=== PATIENT | male | born 1985 | race Caucasian/White ===

== ENCOUNTER 2020-01-29 09:09 | Outpatient (CLI) | payer OTHER, BC, SELFPAY ==
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
== END 2020-01-29 09:10 | disposition home or self-care (01) ==
PROVIDERS: PCP Physician Assistant; Visit Provider Physician Assistant
DX: R19.03 Right lower quadrant abdominal swelling, mass and lump (principal); R10.31 Right lower quadrant pain
CPT/HCPCS: 76705; 93976

== ENCOUNTER 2021-07-22 09:02 | Outpatient (CLI) | payer BC, SELFPAY ==
--- NOTE | ~2021-07-22 | US_ITS ---
EXAMINATION: US abdomen limited EXAM DATE: 07/22/2021 09:58 INDICATION: Elevated bilirubin. TECHNIQUE: Multiple grayscale and Doppler images of the abdomen right upper quadrant were obtained (blayne y a technologist who performed the scan) and subsequently reviewed. There is no prior study for mirlande batres. FINDINGS: The pancreatic head and body are normal in appearance. The pancreatic tail is not visualized. The l iver has normal echogenicity and contour. There are no focal liver lesions identified. There is no evidence of intrahepatic biliary duct dilation. Portal venous flow was seen in the hepatopedal, nor mal direction and has normal Doppler waveform. No right-sided hydronephrosis. Common bile duct measures 5 mm, which is normal. The gallbladder wall is normal in thickness, with ex pected amount of distention. No sonographic evidence of pericholecystic fluid. There is no cholelit hiases. Technologist performing exam reports patient did not demonstrate sonographic Alston's sign. Please note that this sign is less reliable in patients who have received pain medication. IMPRESSION: Unremarkable abdominal ultrasound exam. Reviewed, dictated and finalized at location B.
== END 2021-07-22 09:03 | disposition home or self-care (01) ==
PROVIDERS: PCP Physician Assistant; Visit Provider Nurse Practitioner
DX: R17 Unspecified jaundice (principal)
CPT/HCPCS: 76705

== ENCOUNTER 2023-02-01 08:57 | Emergency (ER) | payer OTHER, SELFPAY ==
[2023-02-01] VITALS (15 sets, daily range): BP systolic 117–145; BP diastolic 64–89; PULSE 67–71; RESP 16; TEMP 36.7–37.1; O2SAT 94–100
--- NOTE | ~2023-02-01 | CT_ITS ---
EXAMINATION: CT abdomen pelvis w con INDICATION: Right lower quadrant pain TECHNIQUE: Computed tomographic images of the abdomen and pelvis were obtained after the administrati on of 100 cc of Omnipaque 350 intravenous contrast. The dose-length product (DLP) was 1081.98 mGy-cm. Automated exposure control and iterative reconstruction technique were employed. COMPARISON: None available FINDINGS: The lung bases are clear. The heart size is normal. The liver, spleen, pancreas, gallbladder, and adrenal glands are normal. An 11 mm hypoattenuating les ion of the left kidney lower pole likely represents a cyst. There is a 2 mm nonobstructing stone of t he right kidney. No pathologically enlarged abdominal or pelvic lymph nodes are identified. No free i ntraperitoneal gas or evidence of bowel obstruction. The appendix is normal. There is questionable mi ld wall thickening of the hepatic flexure of the colon and proximal transverse colon. There is a righ t inguinal hernia containing fat. There is severe lumbar spondylosis at L5-S1. There is a tiny umbili radha hernia containing fat. IMPRESSION: 1. Questionable wall thickening at the hepatic flexure of the colon and proximal transverse colon whi ch could be due to incomplete distention or possibly mild colitis. Reviewed, dictated and finalized at location L. IMPRESSION: 1. Questionable wall thickening at the hepatic flexure of the colon and proxima l transverse colon which could be due to incomplete distention or possibly mild colitis.
[2023-02-01 09:30] LABS: Basophils Percent Auto 0.2 % (0.2-1.2); Eosinophils Percent Auto 0.2 % (0-4.4); Hematocrit 45.9 % (42.0-52.0); Hemoglobin 16.1 g/dL (14.0-18.0); Immature Granulocyte Absolute 0.07 K/mm3 (0.00-0.031); Immature Granulocyte Percent A 0.4 % (0-0.5); Lymphocytes Absolute Auto 1.27 K/mm3 (0.9-3.2); Lymphocytes Percent Auto 7.7 % (18.3-44.2); Mean Corpuscular HGB Conc 35.1 g/dl (32-36); Mean Corpuscular Hemoglobin 29.5 pg (26-34); Mean Corpuscular Volume 84.1 fl (80-100); Mean Platelet Volume 8.9 fl (7.4-10.4); Monocytes Absolute Auto 1.1 K/mm3 (0.1-0.6); Monocytes Percent Auto 6.9 % (2.6-8.5); Neutrophils Absolute Auto 13.9 K/mm3 (1.3-6.7); Neutrophils Percent Auto 84.6 % (45.5-73.1); Platelet Count Result 233 k/mm3 (150-375); Red Blood Count 5.46 M/mm3 (4.6-6.20); Red Cell Distribution Width 12.4 % (11.5-14.5); White Blood Count 16.5 K/mm3 (4.5-10.0)
[2023-02-01 09:31] LABS: Appearance Urine Clear (Clear); Bilirubin Urine Negative (Negative); Blood Urine Negative (Negative); Color Urine Yellow (Yellow); Glucose Urine UA Negative (Negative); Ketones Urine Trace mg/dL (Negative); Leukocyte Esterase Ur Negative LEU/UL (Negative); Nitrate Urine Negative (Negative); Protein Urine Negative (Negative); Specific Grav Ur 1.017 (1.001-1.035); Urobilinogen Urine 0.2 mg/dL (<2.0); pH Urine 6.5 (5.0-9.0)
[2023-02-01 09:36] LABS: Add Urine Microscopic? NO
[2023-02-01 09:42] LABS: Alanine Aminotransferase 28 U/L (6-50); Albumin Level 4.7 g/dL (3.5-5.1); Alkaline Phosphatase 83 U/L (38-126); Anion Gap 10 mmol/L (8-16); Aspartate Amino Transferase 31 U/L (17-59); Bilirubin,Total 2.2 mg/dL (0.2-1.3); Blood Urea Nitrogen 17 mg/dL (9-20); Calcium 9.2 mg/dL (8.4-10.2); Carbon Dioxide 26 mmol/L (22-30); Chloride 102 mmol/L (98-107); Estimated CRCL calculation 107 ml/min; Estimated Glomerular Filt Rate > 60; Glucose 100 mg/dL (65-110); Lipase 159 U/L (23-300); Potassium 3.9 mmol/L (3.4-5.0); Sodium 138 mmol/L (137-145)
--- NOTE | 2023-02-01 09:51 | ED.GENADULT ---
HPI - General Adult General Chief complaint: Abdominal Pain Stated complaint: ABD PAIN X1WEEK Time Seen by Provider: 02/01/23 09:03 Source: patient Mode of arrival: ambulatory Limitations: no limitations History of Present Illness HPI narrative: This is a 38-year-old male who presents to the ED with chief complaint of lower abdominal pain onset x1 week. Reports pain started out in the right lower quadrant and has become progressively worse each day. Reports that the pain is radiating into the right groin area at this point. He states he has become nauseous but has not had any episodes of vomiting. Reports pain is 7-8/10. Worse with palpation. Denies any problems with bowel movements or urinary stream. Denies fevers, chills, Related Data Allergies Allergy/AdvReac Type Severity Reaction Status Date / Time No Known Allergies Allergy Unknown Verified 09/25/22 13:10 Review of Systems Review of Systems: All systems as dictated in [facility] Past Medical History Medical History (Updated 02/01/23 @ 11:19 by Aryan Resendiz PA-C) Chronic pain of left wrist Class 1 obesity with body mass index (BMI) of 32.0 to 32.9 in adult History of wrist fracture Surgical History Surgical History History of surgery on wrist Broken wrist- 2003 Family History Family History Mother Diabetes mellitus Father Hypertension Diabetes mellitus Heart disease Grandparent Brain cancer Social History Social History Smoking status: Never smoker Alcohol intake: never Substance use: never Lack of Transportation: No Lack of Food: Never True Current Housing: I Have Housing Concerned About Future Housing: No Difficulty Paying Gas/Electric Bills: No Difficulty Paying for Meds: No Currently Unemployed: No Education: High School Diploma/GED Difficulty w/ Childcare or Family Care: No Exam Narrative: GENERAL: Well-appearing, well-nourished, and in no acute distress. HEAD: Normocephalic, atraumatic. EYES: PERRLA and EOMI. ENT: Nares clear, no rhinorrhea or epistaxis. Mucous membranes moist. Oropharynx without tonsillar hypertrophy exudate or other lesions. NECK: Supple. No adenopathy or masses. CHEST: No respiratory distress. Clear to auscultation. No wheezes rales or rhonchi HEART: Regular rate and rhythm. No murmur heard. Normal peripheral pulses. ABDOMEN: Focal right lower quadrant tenderness present. McBurney's point positive. Alston sign negative. No rebound or guarding. Soft, nondistended, normal active bowel sounds. MSK: Normal range of motion. No edema. SKIN: Warm, dry, no rash. NEURO: Alert and oriented x3. No focal deficits. PSYCH: Normal mood and affect. Course Course Emergency Course: He declines pain meds. Vital Signs Vital signs: Vital Signs Temperature 98.3 F 02/01/23 09:09 Pulse Rate 67 02/01/23 09:09 Respiratory Rate 16 02/01/23 09:09 Blood Pressure 145/89 H 02/01/23 09:09 Pulse Oximetry 98 02/01/23 09:09 Oxygen Delivery Room Air 02/01/23 09:09 Temperature 98.0 F 02/01/23 11:30 Pulse Rate 71 02/01/23 11:30 Respiratory Rate 16 02/01/23 11:30 Blood Pressure 124/64 02/01/23 11:30 Pulse Oximetry 98 02/01/23 11:30 Oxygen Delivery Room Air 02/01/23 09:11 Medical Decision Making MDM Narrative Medical decision making narrative: This is a 38-year-old male who presents to the ED with chief complaint of right lower quadrant abdominal pain for the past week. Vitals are normal. Exam shows focal right lower quadrant tenderness. Lab work shows elevated white count at 16.5 today. CMP is largely unremarkable. UA shows only trace ketones but no evidence of infection. CT abdomen pelvis with IV contrast: 1. Questionable wall thickening at the hepatic flexure o
[2023-02-01] MEDS: ONDANSETRON INJ 4 MG/2 ML VIAL IV PUSH (10:15)
== END 2023-02-01 11:32 | disposition home or self-care (01) ==
PROVIDERS: Emergency Medicine; Emergency Provider Physician Assistant; PCP Physician Assistant
DX: K52.9 Noninfective gastroenteritis and colitis, unspecified (principal); E66.8 Other obesity; Z68.33 Body mass index [BMI] 33.0-33.9, adult
CPT/HCPCS: 36415; 74177; 80053; 81003; 83690; 85025; 96374; 99284; J2405; Q9967

== ENCOUNTER 2023-12-03 08:03 | Emergency (ER) | payer OTHER, SELFPAY ==
--- NOTE | ~2023-12-03 | CT_ITS ---
CT abdomen pelvis w con Ordering provider: Bennie Orozco III, DO History: 38 years Male with . Right sided abd pain . Comparison: February 01, 2023 Technique: CT abdomen and pelvis with IV and without oral contrast. Automated exposure control and it erative reconstruction technique were employed. The dose-length product was 1172.41 mGy-cm. 100 mL Om nipaque 350 was given IV. Findings: VISUALIZED LOWER CHEST: Normal. UPPER ABDOMINAL ORGANS: Liver: Normal. Gallbladder: Normal. Spleen: Normal. Stomach/duodenum: Normal. Pancreas: Normal. Adrenals: Normal. Kidneys: Stone in the right upper ureter measuring 3 mm with right hydronephrotic changes. PELVIC ORGANS: The bladder is underfilled with slight thickening of the wall. BOWEL AND MESENTERY: Colon: No evidence of diverticulitis. Fecal material is loaded in the colon. Normal appendix. Small Bowel: Normal. No obstruction. Peritoneum/mesentery: No free air or free fluid. No mesenteric lymphadenopathy. RETROPERITONEUM: Normal aorta. No retroperitoneal lymphadenopathy. MUSCULOSKELETAL: Superficial soft tissues: Small fat-containing inguinal hernia. Small inguinal lymph nodes. Otherwise , The superficial soft tissues are normal. Bones: degenerative disc disease at the level of L5-S1. Otherwise, Normal spine. IMPRESSION: 1. Stone in the right upper ureter with hydronephrotic changes. 2. Fecal material in the colon suggestive of constipation. 3. Small fat-containing right inguinal hernia. Reviewed, dictated and finalized at location A.
[2023-12-03 08:10] VITALS: BP 167/85; BP 167/95; PULSE 60; RESP 16; RESP 23; TEMP 36.3; O2SAT 100
[2023-12-03 08:11] VITALS: PULSE 59; RESP 17; O2SAT 96
[2023-12-03 08:21] LABS: Basophils Percent Auto 0.6 % (0.2-1.2); Eosinophils Absolute Auto 0.2 K/mm3 (0-0.3); Eosinophils Percent Auto 2.4 % (0-4.4); Hematocrit 47.7 % (42.0-52.0); Hemoglobin 16.4 g/dL (14.0-18.0); Immature Granulocyte Absolute 0.03 K/mm3 (0.00-0.031); Immature Granulocyte Percent A 0.5 % (0-0.5); Lymphocytes Percent Auto 30.6 % (18.3-44.2); Mean Corpuscular HGB Conc 34.4 g/dl (32-36); Mean Corpuscular Hemoglobin 29.1 pg (26-34); Mean Corpuscular Volume 84.7 fl (80-100); Monocytes Absolute Auto 0.5 K/mm3 (0.1-0.6); Monocytes Percent Auto 7.6 % (2.6-8.5); Neutrophils Absolute Auto 3.6 K/mm3 (1.3-6.7); Neutrophils Percent Auto 58.3 % (45.5-73.1); Platelet Count Result 289 k/mm3 (150-375); Red Blood Count 5.63 M/mm3 (4.6-6.20); Red Cell Distribution Width 12.9 % (11.5-14.5); White Blood Count 6.2 K/mm3 (4.5-10.0)
[2023-12-03 08:32] VITALS: PULSE 67; RESP 17; O2SAT 98
[2023-12-03 08:32] LABS: Alanine Aminotransferase 25 U/L (6-50); Albumin Level 4.8 g/dL (3.5-5.1); Alkaline Phosphatase 69 U/L (38-126); Anion Gap 12 mmol/L (4-12); Aspartate Amino Transferase 30 U/L (17-59); Bilirubin,Total 1.3 mg/dL (0.2-1.3); Blood Urea Nitrogen 18 mg/dL (9-20); Calcium 8.9 mg/dL (8.4-10.2); Carbon Dioxide 27 mmol/L (22-30); Chloride 103 mmol/L (98-107); Estimated CRCL calculation 114 ml/min; Estimated Glomerular Filt Rate > 60; Glucose 127 mg/dL (65-110); Lipase 185 U/L (23-300); Potassium 3.7 mmol/L (3.4-5.0); Sodium 142 mmol/L (137-145)
[2023-12-03 08:45] VITALS: RESP 22; O2SAT 98
--- NOTE | 2023-12-03 08:56 | ED.ABDPAIN ---
HPI - Abdominal Pain General Chief Complaint: Abdominal Pain Stated Complaint: abdominal pain Time Seen by Provider: 12/03/23 08:47 History of Present Illness HPI narrative: Pt says he has been having intermittent pain in right side for 3 weeks but this morning pain got much worse in RLQ and he got nauseated and diaphoretic. Pt says the pain is constant now but waxes and wanes in severity. Pt denies urinary symptoms. Related Data Allergies Allergy/AdvReac Type Severity Reaction Status Date / Time No Known Allergies Allergy Unknown Verified 12/03/23 08:11 Review of Systems Review of Systems: All systems reviewed & are unremarkable except as noted in HPI and below PMFSH Past Medical History Medical History Chronic pain of left wrist Class 1 obesity with body mass index (BMI) of 32.0 to 32.9 in adult History of wrist fracture Surgical History Surgical History History of surgery on wrist Broken wrist- 2003 Family History Family History Mother Diabetes mellitus Father Hypertension Diabetes mellitus Heart disease Grandparent Brain cancer Social History Social History Smoking status: Never smoker Alcohol intake: never Substance use: never Lack of Transportation: No Lack of Food: Never True Current Housing: I Have Housing Concerned About Future Housing: No Difficulty Paying Gas/Electric Bills: No Difficulty Paying for Meds: No Currently Unemployed: No Education: High School Diploma/GED Difficulty w/ Childcare or Family Care: No Exam Const: General: healthy appearing and diaphoretic Nutritional Appearance: well nourished Orientation/consciousness: patient oriented x3 Limitations: no limitations Resp: Effort & Inspection: normal respiratory effort Auscultation: clear to auscultation bilaterally Cardio: Rate: regular rate Rhythm: regular rhythm GI: GI Palp: Yes Soft to palpation and Yes Tenderness to palpation present (GI) (rlq) Auscultation: normal bowel sounds : General: Yes bladder normal to palpation Back/Spine/Pelvis: Back: no CVA tenderness Skin: General skin exam: normal color Rashes: no rashes Wounds: no wounds Neuro: General: patient oriented x3, moves all extremities, no meningeal signs and no focal motor deficits Speech: normal speech Extrem: General: normal to inspection and no clubbing, cyanosis or edema Psych: Mental Status: mental status grossly normal Affect: normal affect Attitude: cooperative Course Vital Signs Vital signs: Vital Signs Temperature 97.4 F L 12/03/23 08:10 Pulse Rate 60 12/03/23 08:10 Respiratory Rate 16 12/03/23 08:10 Blood Pressure 167/85 H 12/03/23 08:10 Pulse Oximetry 100 12/03/23 08:10 Temperature 97.4 F L 12/03/23 08:10 Pulse Rate 62 12/03/23 12:01 Respiratory Rate 16 12/03/23 12:01 Blood Pressure 142/88 H 12/03/23 12:01 Pulse Oximetry 98 12/03/23 12:01 MDM - Abdominal Pain MDM Narrative Medical decision making narrative: see partial DDx list below. will treat pain and nausea and give IVF will check labs, UA and CT to rule out stone or appy. Pt has 3 mm proximal ureteral stone with hydro. Pain and nausea controlled with meds. UA only rbc's. Home on flomax, norco and zofran with urology follow up. Differential Diagnosis Differential diagnosis: Likely abdominal pain, acute appendicitis, calculus of kidney, constipation, diverticulitis, gastroenteritis and small bowel obstruction Lab Data 12/03/23 08:16 12/03/23 08:16 Labs: Lab Results 12/03/23 12/03/23 Range/Units 08:16 11:11 WBC 6.2 (4.5-10.0) K/mm3 RBC 5.63 (4.6-6.20) M/mm3 Hgb 16.4 (14.0-18.0) g/dL Hct 47.7 (42.0-52.0) % MCV 84.7 (80-100) f
[2023-12-03 09:00] VITALS: RESP 18; O2SAT 99
[2023-12-03] MEDS: ONDANSETRON INJ 4 MG/2 ML VIAL IV PUSH ×2 (09:02→12:12)
[2023-12-03] MEDS: SODIUM CHLORIDE 0.9% IV 1,000 ML 999 ML IV CONT (09:03)
[2023-12-03] MEDS: HYDROmorphone HCL INJ (*CRX) 1 MG/ML SYR 0.5 MG IV PUSH (09:03)
[2023-12-03] MEDS: HYDROmorphone HCL INJ (*CRX) 1 MG/ML SYR IV PUSH (09:48)
[2023-12-03] MEDS: SODIUM CHLORIDE 0.9% IV 50 ML 400 ML (11:39)
[2023-12-03] MEDS: PROCHLORPERAZINE EDISYLATE 10 MG/2 ML VIAL IV PUSH (11:39)
[2023-12-03 11:45] LABS: Add Urine Microscopic? YES; Appearance Urine Cloudy (Clear); Bacteria Urine None Seen /hpf; Bilirubin Urine Negative (Negative); Blood Urine 3+ (Negative); Color Urine Dark Yellow (Yellow); Glucose Urine UA Negative (Negative); Ketones Urine Negative (Negative); Leukocyte Esterase Ur Trace LEU/UL (Negative); Need Manual Microscopic Reviewed; Nitrate Urine Negative (Negative); Non Pathogenic Casts 0-2; Protein Urine 1+ mg/dL (Negative); RBC Urine >100 /hpf (0-2); Specific Grav Ur > 1.045 (1.001-1.035); Squamous Epithelial Cell Urine None Seen /hpf (Few); WBC Urine 0-5 /hpf (0-3); pH Urine 5.5 (5.0-9.0)
[2023-12-03 12:01] VITALS: BP 142/88; PULSE 62; RESP 16; O2SAT 98
[2023-12-03] MEDS: fentaNYL CITRATE INJ (*CRX) 100 MCG/2 ML VIAL 50 MCG IV PUSH (12:12)
== END 2023-12-03 12:37 | disposition home or self-care (01) ==
PROVIDERS: Emergency Provider Emergency Medicine
DX: N20.1 Calculus of ureter (principal); E66.09 Other obesity due to excess calories; Z68.32 Body mass index [BMI] 32.0-32.9, adult; K40.90 Unilateral inguinal hernia, without obstruction or gangrene, not specified as recurrent
CPT/HCPCS: 36415; 74177; 80053; 81001; 83690; 85025; 96361; 96374; 96375; 96376; 99284; J0780; J1170; J2405; J3010; J7030; Q9967

== ENCOUNTER 2023-12-28 01:19 | Emergency (ER) | payer OTHER, SELFPAY ==
--- NOTE | ~2023-12-28 | CT_ITS ---
CT of the Abdomen and Pelvis: Indication: Abdominal pain Technique: 2.5 mm axial scans were obtained through the abdomen and pelvis following intravenous adm inistration of 100 cc of Omnipaque 350. Dose reduction technique was used on this scan by utilizing a utomated exposure control and iterative reconstruction technique. The dose-length product (DLP) was 1 208.97 mGy-cm. COMPARISON: 12/03/2023 Findings: Scans through the lung bases are unremarkable. The liver, spleen, pancreas, gallbladder, adrenals and left kidney are within normal limits. 4 mm rig ht ureteral stone has migrated to the distal ureter since prior exam (axial image 144), with moderate hydroureteronephrosis to this level persisting. No evidence of aortic aneurysm. No lymphadenopathy. No bowel obstruction or bowel wall thickening. There is no evidence to suggest acute appendicitis. Images through the pelvis were performed. Urinary bladder unremarkable. No pelvic mass seen. No ascit es. Impression: 4 mm right ureteral stone has migrated to the distal ureter since prior exam, with persistent moderat e right hydroureteronephrosis to the level of the stone. Reviewed, dictated and finalized at location M. Impression: 4 mm right ureteral stone has migrated to the distal ureter since prior exam, w ith persistent moderate right hydroureteronephrosis to the level of the stone.
[2023-12-28 01:22] VITALS: BP 150/85; PULSE 59; RESP 16; TEMP 36.6; O2SAT 99
--- NOTE | 2023-12-28 03:04 | ED.ABDPAIN ---
HPI - Abdominal Pain General Chief Complaint: Abdominal Pain Stated Complaint: RLQ pain after taking miralax Time Seen by Provider: 12/28/23 02:52 History of Present Illness HPI narrative: 38-year-old male presents emergency department for evaluation for right lower quadrant abdominal pain that worsened after 7:00 p.m.. Patient states he has had some constipation for the last few days. Patient began taking MiraLax today and did have significant results. Patient states after having the bowel movement he began to have some right lower quadrant abdominal pain. Patient did have some leftover narcotic pain medication from his prior kidney stones and patient was able to take a nap. When patient woke up from the nap he states his pain had worsened. Patient denies any prior history of abdominal surgeries. Related Data Allergies Allergy/AdvReac Type Severity Reaction Status Date / Time No Known Allergies Allergy Unknown Verified 12/28/23 01:21 Review of Systems Review of Systems: All systems reviewed & are unremarkable except as noted in HPI and below PMFSH Past Medical History Medical History Chronic pain of left wrist Class 1 obesity with body mass index (BMI) of 32.0 to 32.9 in adult History of wrist fracture Surgical History Surgical History History of surgery on wrist Broken wrist- 2003 Family History Family History Mother Diabetes mellitus Father Hypertension Diabetes mellitus Heart disease Grandparent Brain cancer Social History Social History Smoking status: Never smoker Alcohol intake: never Substance use: never Lack of Transportation: No Lack of Food: Never True Current Housing: I Have Housing Concerned About Future Housing: No Difficulty Paying Gas/Electric Bills: No Difficulty Paying for Meds: No Currently Unemployed: No Education: High School Diploma/GED Difficulty w/ Childcare or Family Care: No Exam Narrative: APPEARANCE: Well appearing, no pain, no distress, well-nourished. HEAD: normocephalic, atraumatic. EYES: PERRLA/EOMI, conjunctivae clear. NOSE: Normal no drainage EARS:TMS clear with good light reflex. THROAT: Pharynx clear, no exudate. NECK: Supple. No adenopathy, no masses. RESPIRATORY: Airway patent, respirations nonlabored. Clear to auscultation bilaterally, no rales, rhonchi, wheezing. CARDIOVASCULAR: Regular rate and rhythm without murmurs rubs or gallops. ABDOMINAL: Right lower quadrant tenderness to palpation MUSCULOSKELETAL: Moves all extremities. Strength/ROM intact, No edema, No calf tenderness. NEURO: Alert. Cranial nerves II through XII intact. SKIN: Warm, dry. Normal Color Course Vital Signs Vital signs: Vital Signs Temperature 97.8 F 12/28/23 01:22 Pulse Rate 59 L 12/28/23 01:22 Respiratory Rate 16 12/28/23 01:22 Blood Pressure 150/85 H 12/28/23 01:22 Pulse Oximetry 99 12/28/23 01:22 Oxygen Delivery Room Air 12/28/23 01:22 Temperature 97.8 F 12/28/23 01:22 Pulse Rate 60 12/28/23 06:46 Respiratory Rate 17 12/28/23 06:46 Blood Pressure 123/80 12/28/23 06:46 Pulse Oximetry 97 12/28/23 06:46 Oxygen Delivery Room Air 12/28/23 01:22 MDM - Abdominal Pain MDM Narrative Medical decision making narrative: 38-year-old male presents emergency department for evaluation for flank pain. Patient was diagnosed with a kidney stone. Patient's pain was improved. Patient was discharged home with additional medication for pain control instructions to have close follow-up with Urology. Differential Diagnosis Differential diagnosis: Likely abdominal pain, acute appendicitis, calculus of kidney, constipation, diverticulitis, gastroenteritis, pancreatitis and small bowel obstruction
[2023-12-28 03:07] LABS: Basophils Percent Auto 0.2 % (0.2-1.2); Eosinophils Percent Auto 0.2 % (0-4.4); Hematocrit 45.3 % (42.0-52.0); Hemoglobin 15.6 g/dL (14.0-18.0); Immature Granulocyte Absolute 0.03 K/mm3 (0.00-0.031); Immature Granulocyte Percent A 0.2 % (0-0.5); Lymphocytes Absolute Auto 1.53 K/mm3 (0.9-3.2); Lymphocytes Percent Auto 12.2 % (18.3-44.2); Mean Corpuscular HGB Conc 34.4 g/dl (32-36); Mean Corpuscular Hemoglobin 29.1 pg (26-34); Mean Corpuscular Volume 84.5 fl (80-100); Mean Platelet Volume 8.6 fl (7.4-10.4); Monocytes Absolute Auto 0.7 K/mm3 (0.1-0.6); Monocytes Percent Auto 5.3 % (2.6-8.5); Neutrophils Absolute Auto 10.3 K/mm3 (1.3-6.7); Neutrophils Percent Auto 81.9 % (45.5-73.1); Platelet Count Result 260 k/mm3 (150-375); Red Blood Count 5.36 M/mm3 (4.6-6.20); Red Cell Distribution Width 12.4 % (11.5-14.5); White Blood Count 12.5 K/mm3 (4.5-10.0)
[2023-12-28 03:18] LABS: Alanine Aminotransferase 21 U/L (6-50); Albumin Level 4.9 g/dL (3.5-5.1); Alkaline Phosphatase 73 U/L (38-126); Anion Gap 11 mmol/L (4-12); Aspartate Amino Transferase 26 U/L (17-59); Bilirubin,Total 1.3 mg/dL (0.2-1.3); Blood Urea Nitrogen 19 mg/dL (9-20); Calcium 9.2 mg/dL (8.4-10.2); Carbon Dioxide 27 mmol/L (22-30); Chloride 103 mmol/L (98-107); Estimated CRCL calculation 96 ml/min; Estimated Glomerular Filt Rate > 60; Glucose 124 mg/dL (65-110); Lactic Acid Reflex 1.2 mmol/L (0.7-2.0); Lipase 157 U/L (23-300); Potassium 4.3 mmol/L (3.4-5.0); Sodium 141 mmol/L (137-145)
[2023-12-28 04:55] LABS: Add Urine Microscopic? YES; Appearance Urine Cloudy (Clear); Bacteria Urine None Seen /hpf; Bilirubin Urine Negative (Negative); Blood Urine 3+ (Negative); Budding Yeast Urine Present /hpf; Calcium Oxalate Crystals Urine Present /hpf; Color Urine Yellow (Yellow); Glucose Urine UA Negative (Negative); Ketones Urine Negative (Negative); Leukocyte Esterase Ur 1+ LEU/UL (Negative); Need Manual Microscopic Reviewed; Nitrate Urine Negative (Negative); Non Pathogenic Casts 0-2; Protein Urine Trace mg/dL (Negative); RBC Urine >100 /hpf (0-2); Specific Grav Ur > 1.045 (1.001-1.035); Squamous Epithelial Cell Urine None Seen /hpf (Few); Uric Acid Crystals Urine Present /hpf; pH Urine 5.5 (5.0-9.0)
[2023-12-28 06:10] VITALS: BP 117/75; PULSE 69; RESP 17; O2SAT 97
[2023-12-28] MEDS: TAMSULOSIN HCL 0.4 MG CAPSULE PO (06:20)
[2023-12-28] MEDS: KETOROLAC 15 MG/ML VIAL (*BKC) IV PUSH (06:21)
[2023-12-28 06:46] VITALS: BP 123/80; PULSE 60; RESP 17; O2SAT 97
== END 2023-12-28 06:49 | disposition home or self-care (01) ==
PROVIDERS: Emergency Provider Emergency Medicine; PCP Nurse Practitioner
DX: N20.1 Calculus of ureter (principal)
CPT/HCPCS: 36415; 74177; 80053; 81001; 83605; 83690; 85025; 87086; 96374; 99284; A9270; J1885; Q9967

== ENCOUNTER 2024-05-22 17:43 | Emergency (ER) | payer OTHER, SELFPAY ==
[2024-05-22 17:55] VITALS: BP 129/78; PULSE 75; RESP 16; TEMP 37.3; O2SAT 100
[2024-05-22 18:07] LABS: EDCOVIDSCREEN Negative (Negative); EDINFLUASCREEN Positive (Negative); EDINFLUBSCREEN Negative (Negative)
--- NOTE | 2024-05-22 18:21 | ED_ITS ---
HPI - URI/Sore Throat General Chief Complaint: Upper Respiratory Infection Stated Complaint: SOB/Cough/Headaches Time Seen by Provider: 05/22/24 18:21 Source: patient, RN notes reviewed and old records reviewed Mode of arrival: ambulatory Limitations: no limitations History of Present Illness HPI Narrative: 39-year-old male presents to the [facility] with cough, headache, body aches that started yesterday. Has taken DayQuil. Denies fevers Onset (ago): day(s) (1) Treatments prior to arrival: cold medicine Related Data Home Medications ?Medication ?Instructions ?Recorded ?Confirmed ?Last Taken ?Type No Home Medications 05/22/24 05/22/24 Unknown History Allergies Allergy/AdvReac Type Severity Reaction Status Date / Time No Known Allergies Allergy Unknown Verified 05/22/24 17:55 Review of Systems Review of Systems: All systems reviewed & are unremarkable except as noted in HPI and below Constitutional: Constitutional: Reports as per HPI and Reports headache(s) ENT: Reports system reviewed and no additional complaints, except as documented Cardiovascular: Cardiovascular: Reports no additional cardiovascular complaints, Denies chest pain and Denies dyspnea Respiratory: Respiratory: Reports as per HPI, Denies chest congestion, Reports cough and Denies dyspnea Musculoskeletal: Musculoskeletal: Reports no additional musculoskeletal complaints Integumentary/Breasts: Skin/Breast: Reports system reviewed and no additional complaints, except as docu PMFSH Past Medical History Medical History History of wrist fracture Class 1 obesity with body mass index (BMI) of 32.0 to 32.9 in adult Chronic pain of left wrist Surgical History Surgical History History of surgery on wrist Broken wrist- 2003 Family History Family History Mother Diabetes mellitus Father Hypertension Diabetes mellitus Heart disease Grandparent Brain cancer Social History Social History Smoking status: Never smoker Alcohol intake: never Substance use: never Lack of Transportation: No Lack of Food: Never True Current Housing: I Have Housing Concerned About Future Housing: No Difficulty Paying Gas/Electric Bills: No Difficulty Paying for Meds: No Currently Unemployed: No Education: High School Diploma/GED Difficulty w/ Childcare or Family Care: No Comments At the time of my signature, I reviewed and agree with the nursing past medical, surgical, social, and family history. There is no relevant family history pertinent to the patient complaint. Exam Const: General: cooperative, healthy appearing, comfortable, no acute distress, well developed, alert and well nourished Nutritional Appearance: well nourished Orientation/consciousness: patient oriented x3 Limitations: no limitations HENMT: Head: normal to inspection Ears: hearing grossly normal bilaterally, external ears normal, TM's normal bilaterally, EAC's normal, mastoids normal and no periauricular adenopathy Mouth: Yes Normal oral and palatal mucosa present, Yes lip normal, Yes tongue normal and Yes moist mucous membranes Throat: posterior oropharynx normal, uvula midline and no uvular edema Eyes: General: appearance normal, both eyes and all related structures Alignment and Position: alignment normal Neck: Neck: normal visual inspection, full ROM, no lymphadenopathy and no meningeal signs Chest: Chest palpation & inspection: normal inspection of the chest Resp: Effort & Inspection: normal respiratory effort and able to speak in complete sentences Auscultation: clear to auscultation bilaterally, no crackles, no rales, no rhonchi and no wheezes Cardio: Rate: regular rate Skin: General skin exam: normal color and no rashes or lesions noted Neuro: General: patient oriented x3, gait normal, moves all extremities and no meningeal signs Cognition (Neuro): normal cognition Speech: normal speech Gait exam (Neuro): Normal gait present Extrem: General: normal to inspection, full ROM, capillary refill normal and normal gait Psych: Appearance: grossly normal and well kempt Mental Status: mental status grossly normal Speech and movement: Normal speech and movement present and Clear speech present Affect: normal affect Attitude: cooperative Course Course Level of Care: Express Care Visit Vital Signs Vital signs: Vital Signs Temperature 99.2 F 05/22/24 17:55 Pulse Rate 75 05/22/24 17:55 Respiratory Rate 16 05/22/24 17:55 Blood Pressure 129/78 05/22/24 17:55 Pulse Oximetry 100 05/22/24 17:55 Temperature 99.2 F 05/22/24 17:55 Pulse Rate 75 05/22/24 17:55 Respiratory Rate 16 05/22/24 17:55 Blood Pressure 129/78 05/22/24 17:55 Pulse Oximetry 100 05/22/24 17:55 Reviewed MDM - URI/Sore Throat MDM Narrative Medical decision making narrative: Patient sitting comfortably in exam room. Nontoxic, vitals stable. Patient in no acute distress. Patient presents with 1 day history of viral URI symptoms. Patient is flu A positive. Patient is appropriate for outpatient treatment and follow-up Discharge instructions reviewed with patient, as well as provided in writing per nursing staff. The instructions also include specific and strict return/GO TO THE ER as well as f/u information. All questions have been answered, and the patient deny any further questions with discharge and discharge plan. Some parts of this dictation were generated by voice recognition software and may contain typographical and/or grammatical inaccuracies. Differential Diagnosis Differential diagnosis: Likely upper respiratory infection, otitis media, sinusitis, viral infection and influenza Lab Data Labs: Lab Results 05/22/24 Range/Units 18:05 POC Influenza A Ag Positive (Negative) POC Influenza B Ag Negative (Negative) POC SARS CoV-2 Ag Negative (Negative) Reviewed Critical Care Time Critical Care Time Critical Care Time: No Discharge Plan Discharge Clinical Impression: Influenza A Patient Disposition: Home, Self-Care Condition: Stable Instructions: Antibiotic Form, Influenza (ED) Additional Instructions: Your rapid COVID test were negative Your rapid flu test was positive for influenza A Your symptoms are due to a viral illness, which is not treated with antibiotics. Typically viral infections last 7-10 days, can linger for couple of weeks. It is very important to treat your symptoms. Drink plenty of water, Gatorade, Pedialyte, ice pops or Jell-O. -Alternate Tylenol and Motrin per package directions for fever or pain. You can alternate every 4 hours -Antihistamine medication such as Zyrtec/Claritin/Ryann during the day can help improve symptoms. -doing daily nasal irrigations can help relieve pressure your sinuses. Things like a Neti pot -Use Flonase twice a day for 5 days then daily to help reduce the inflammation and dry up your sinuses. -You can also use Mucinex. Be sure to drink plenty of water with this medication at least 8 ounces with every dose and it is important to drink 8 to 10 glasses of water per day. Water is a natural decongestant -Eat and drink things that are easy to swallow, like tea or soup, or popsicles. -Oral rinses such as: Salt water gargles and/or may use topical anesthetic (eg. Chloraseptic spray) or lozenges to relieve dryness or throat pain). -Frequent hand washing or hand sandblaster glass is one of the best ways to prevent spread of infection. -Using a vaporizer or humidifier at night will also help thin secretions and help with coughing up phlegm. -Follow up with primary care provider in 7-10 days if condition is not improving If you are having a hard time finding a physician please call our [facility] liaison at [phone]. - For new or worsening symptoms go directly to the nearest ER Patient Language: Togolese Prescriptions: No Action No Home Medications Follow-up/Referrals: PHYSICIAN,PHOTOCOPYING EQUIPMENT MECHANIC [Primary Care Provider] - Bennie Gonzales MD [Physician] - Stand Alone Forms: Work/School Release IP Time of Disposition: 18:26
== END 2024-05-22 18:32 | disposition home or self-care (01) ==
PROVIDERS: Emergency Provider Nurse Practitioner
DX: J10.1 Influenza due to other identified influenza virus with other respiratory manifestations (principal); E66.9 Obesity, unspecified; Z68.31 Body mass index [BMI] 31.0-31.9, adult; Z20.822 Contact with and (suspected) exposure to COVID-19
CPT/HCPCS: 87426; 87804; 99213; G0463